=== PATIENT | female | born 1980 | race Asian ===

== ENCOUNTER 2016-11-01 16:00 | Emergency (ER) | payer OTHER ==
[~2016-11-01] VITALS: Ht 165.1 cm; Wt 54.4 kg
[~2016-11-01 16:00] MED LIST: AZITHROMYCIN250 MG ORAL; CYCLOBENZAPRINE10 MG ORAL; IBUPROFEN600 MG ORAL; NKM; NORCO 5-325 TA1 EACH ORAL; PROMETHAZINE-C118 M1 ORAL
[2016-11-01 16:20] VITALS: BP 111/73
[2016-11-01] MEDS ORDERED: Ketorolac 60mg Inj IM ONE (17:00)
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
[2016-11-01] MEDS ORDERED: IBUPROFEN600 MG ORAL (17:03)
[2016-11-01] MEDS ORDERED: ROBAXIN-750750 MG PO (17:03)
[2016-11-01 17:10] VITALS: BP 102/71
== END 2016-11-01 17:10 | disposition home or self-care (01) ==
LOC: EMR 16:42
DX: M62.830 Muscle spasm of back (principal); T14.8 Other injury of unspecified body region; V43.52XA Car driver injured in collision with other type car in traffic accident, initial encounter; Y92.410 Unspecified street and highway as the place of occurrence of the external cause; Y99.8 Other external cause status
CPT/HCPCS: 96372; 99284

== ENCOUNTER 2017-05-26 12:54 | Emergency (ER) | payer OTHER ==
[~2017-05-26] VITALS: Ht 165.1 cm; Wt 56.7 kg
[~2017-05-26 12:54] MED LIST changes: +ROBAXIN-750750 MG PO
[2017-05-26 13:09] VITALS: BP 112/73
[2017-05-26 13:27] VITALS: BP 112/73
[2017-05-26] MEDS ORDERED: PREDNISONE20 MG ORAL (13:27)
[2017-05-26] MEDS ORDERED: PROAIR HFA8.5 GM INH (13:27)
[2017-05-26] MEDS ORDERED: PROMETHAZINE-D118 ML ORAL (13:27)
--- NOTE | 2017-05-26 18:45 | Emergency Room Report ---
History of Present Illness General Chief Complaint: Upper Respiratory Illness Source: Patient Present Illness HPI The patient is a 37 old female presenting for subjective fever and cough. She states that this began yesterday. She denies any recent travel but does admit to a sick contact who is her son. He has similar symptoms. She states that she produces a yellow sputum. Pain only occurs with coughing and is described as a 5/10 dull ache to the throat and mid chest. She denies history of smoking. She denies any other symptoms including nausea, vomiting, shortness of breath, rash, headache, abdominal pain Allergies: Coded Allergies: Cat Dander (Unverified Allergy, Unknown, 09/02/14) Patient History Past Medical History: see triage record Pertinent Family History: none Last Menstrual Period: 05/25/2017 Reviewed Nursing Documentation: PMH: Agreed, PSxH: Agreed Nursing Documentation-PMH Past Medical History: No Stated History Review of Systems All Other Systems: negative except mentioned in HPI Physical Exam Vital Signs Date Time Temp Pulse Resp B/P (MAP) Pulse Ox O2 Delivery O2 Flow Rate FiO2 05/26/17 13:09 97.9 65 16 112/73 95 Room Air Sp02 EP Interpretation: reviewed, normal General Appearance: no apparent distress, alert, GCS 15, non-toxic Head: normocephalic, atraumatic Eyes: bilateral eye normal inspection, bilateral eye PERRL ENT: hearing grossly normal, normal pharynx, no angioedema, normal voice Neck: full range of motion, supple/symm/no masses Respiratory: chest non-tender, normal breath sounds, speaking full sentences, wheezing - bilat diffuse Cardiovascular #1: regular rate, rhythm, no edema Gastrointestinal: normal bowel sounds, non tender, soft, non-distended, no guarding, no rebound Musculoskeletal: back normal, gait/station normal, normal range of motion, non- tender Neurologic: alert, oriented x3, responsive, motor strength/tone normal, sensory intact, speech normal Psychiatric: judgement/insight normal, memory normal, mood/affect normal, no suicidal/homicidal ideation Skin: normal color, no rash, warm/dry, well hydrated Lymphatic: no adenopathy Medical Decision Making PA Attestation Dr. Ludwig is my supervising physician. Patient management was discussed with my supervising physician Diagnostic Impression: Primary Impression: Bronchitis ER Course The patient is a 37 old female presenting for subjective fever and cough Differential diagnosis include but not limited to pharyngitis, sinusitis, AOM, bronchitis, PNA PE: afebrile. No tachypnea. No apparent distress. No TTP over maxillary or frontal sinuses. Lungs: diffuse wheezing. No accessory muscle use. No resp distress Heart: RRR, no abnormal heart sounds Ears: external auditory canal clear. Non erythematous. Bilat TM intact. Cone of light present bilat. No bulging of TM. No serous fluid seen. no nasal D/C No cervical lymphad No tonsillar exudate. Uvula midline.Oropharynx non erythematous The patient will be discharged home with a prescription for Cough medication, prednisone, and albuterol. She will followup with primary doctor. ER precautions are given Last Vital Signs Date Time Temp Pulse Resp B/P (MAP) Pulse Ox O2 Delivery O2 Flow Rate FiO2 05/26/17 13:50 97.9 65 16 112/73 95 Room Air Status: improved Disposition: HOME, SELF-CARE Condition: Improved Scripts D-Methorphan Hb/Prometh Hcl* (PROMETHAZINE-DM SYRUP*) 118 Ml Syrup 5 ML ORAL Q6H Y for For Cough, #118 ML 0 Refills Prov: TERZIANALICIA P.A. 05/26/17 Albuterol Sulfate* (PROAIR HFA*) 8.5 Gm Hfa.aer.ad 2 PUFFS INH Q6H, #8.5 GM 0 Refills Prov: TERZIANRAJEEVY P.A. 05/26/17 Prednisone* (PREDNISONE*) 20 Mg Tablet 40 MG ORAL DAILY, #10 TAB Prov: ALICIA COWAN P.A. 05/26/17 Referrals: [facility],REFERRING (PCP) Patient Instructions: Acute Bronchitis Additional Instructions: I discussed my findings with the patient. All questions and concerns have been answered. Treatment and medication compliance have been addressed. I advised the patient that they need to follow up with PMD in 3-5 days. Return to ED if pain remains or worsens, cough worsens or remains, you notice blood in your sputum, you notice wheezing, you experience a fever, or if needed for any reason. Patient verbalized understanding of discharge instructions. ALICIA COWAN May 26, 2017 18:45
== END 2017-05-26 13:50 | disposition home or self-care (01) ==
LOC: EMR 13:37
DX: J40 Bronchitis, not specified as acute or chronic (principal)
CPT/HCPCS: 99284